=== PATIENT | male | born 1975 | race African-American/Black ===

== ENCOUNTER 2024-07-30 17:56 | Emergency (ER) | payer OTHER, SELFPAY ==
--- NOTE | ~2024-07-30 | XR_ITS ---
EXAMINATION: XR chest 2V Exam Date/Time: 07/30/2024 18:32 PIPE FITTER SOFT COPPER HISTORY: cough, URI Comparison: None. RESULT: Lines, tubes, and devices: None. Lungs and pleura: Clear. Cardiomediastinal silhouette: Unremarkable. Other: No acute osseous or upper abdominal finding. IMPRESSION: No acute cardiopulmonary process. Reviewed, dictated and finalized at location K. FITTER SOFT COPPER
[2024-07-30 17:58] VITALS: BP 137/99; PULSE 109; RESP 20; TEMP 36.6; O2SAT 99
--- OUTSIDE RECORDS SUMMARY | 2024-07-30 18:25 | XMS_ITS | Clinical Summary ---
[facility] Organization [facility] Address [address] [place] [address] Care Team Providers Care Regional Account Manager Name Role Phone Pcp, Not In System Primary Care Provider Unavail able Allergies No known active allergies Medications permethrin (ELIMITE) 5 % cream Apply to affected area once 60 g 0 7 Active predniSONE (DELTASONE) 10 mg tablet 40mg x3days, 30mg x3days, 20mg x3days, 10mg x3days, 5mg x3 days. 32 tablet 0 7 Active Additional Information Patient not taking.Reported on 05/07/2024 methylPREDNISol one (MEDROL, BETH,) 4 mg tablet follow package directions 21 tablet 3 Active Additional Information Patient not taking.Reported on 05/07/2024 amLODIPine (NORVASC) 10 mg tablet Take 1 tablet (10 mg total) by mouth in the morning. 30 tablet 3 Active albuterol (PROVENTIL HFA;VENTOLIN HFA) 90 mcg/actuation inhalerIndicati ons:Acute bronchitis, unspecified organism Inhale 2 puffs every 4 (four) hours as needed for wheezing. 18 g 3 Active white petrolatum (AQUAPHOR) 41 % ointment Apply 1 Application topically as needed (for rash/dry skin). 50 g 5 Active amLODIPine (NORVASC) 5 mg tablet Take 1 tablet (5 mg total) by mouth in the morning. 30 tablet 1 5 Active amLODIPine (NORVASC) 10 mg tablet Take 1 tablet (10 mg total) by mouth in the morning for 60 days. 60 tablet 4 07/06/19 25 Encounters Date Type Department Care Team Description 06/23/2024 11:43 AM EST - 06/23/2024 12:45 PM EST [facility] [address] [place] [address] [place] [address] Larry Grewal MD Rash (Primary Dx); Hypertension, unspecified type Discharge Disposition: Home 06/23/2024 Travel 05/07/2024 10:43 AM EST - 05/07/2024 11:36 AM EST [facility] [address] [place] [address] [place] [address] Medication refill (Primary Dx) Discharge Disposition: Home 05/07/2024 Travel from Last 3 Months Social History Tobacco Use Types Packs/Day Years Used Date Smoking Tobacco: Never Alcohol Use Standard Drinks/Week Comments No 0 (1 standard drink = 0.6 oz pur e alcohol) Childcare Answer Date Recorded Childcare Unknown 11/30/2018 Employment Answer Date Recorded Employment Unknown 11/30/2018 Hunger Screening Answer Date Recorded Within the past 12 months we worried whether our food would run out before we got money to buy more. Never True 06/23/2024 Within the past 12 months th e food we bought just didn't last and we didn't have money to get more. Never True 06/23/2024 Purpose - Life Answer Date Recorded Purpose and direction in life Unknown Sex and Gender Information Value Date Recorded Sex Assigned at Not on file Legal Sex Male 8:11 PM EDT Gender Identity Not on file Sexual Orientation Not on file Last Filed Vital Signs Vital Sign Reading Time Taken Comments Blood Pressure 167/120 06/23/2024 12:30 PM EST Pulse 102 06/23/2024 12:30 PM EST Temperature 37.3 C (99.1 F) 06/23/2024 11:48 AM EST Respiratory Rate 16 06/23/2024 12:30 PM EST Oxygen Saturation 95% 06/23/2024 12:45 PM EST Inhaled Oxygen Concentration - - Weight 124.7 kg (275 lb) 06/23/2024 11:48 AM EST Height 172.7 cm (5' 8 ) 06/23/2024 11:48 AM EST Body Mass Index 41.81 06/23/2024 11:48 AM EST Plan of Treatment Not on file Medical Devices Not on file Insurance [employer] Care Teams Regional Account Manager Relationship Specialty Start Date End Date Pcp, [place] [address] PCP - General Family Medicine 09/14/16
--- OUTSIDE RECORDS SUMMARY | 2024-07-30 18:25 | XMS_ITS | Referral Summary ---
Author Organization [facility] Address [address] [place] [address] Care Team Providers Care Bologna Maker Name Role Phone Pcp, Not In System Primary Care Provider Unavail able Encounters Date Type Department Care Team Description 06/23/2024 Travel 06/23/2024 11:43 AM EST - 06/23/2024 12:45 PM EST Emergency [facility] -Emergency Department [address] [place] [address] [place] [phone] Larry Grewal MD Rash (Primary Dx); Hypertension, unspecified type Discharge Disposition: Home 05/07/2024 Travel 05/07/2024 10:43 AM EST - 05/07/2024 11:36 AM EST Emergency [facility] -Emergency Department [address] [place] [address] [place] [phone] Medication refill (Primary Dx) Discharge Disposition: Home from Last 3 Months Allergies No known active allergies Medications permethrin [...] 60 days. 60 tablet 4 07/06/19 25 Social History Tobacco Use Types Packs/Day Years [...] [employer] Care Teams Bologna Maker Relationship Specialty Start Date End Date Pcp, [place] [address] PCP - General Family Medicine 09/14/16
--- OUTSIDE RECORDS SUMMARY | 2024-07-30 18:25 | XMS_ITS | Data Portability ---
Author Organization [place] [facility] Address [address] [place] [address] Assessment Encounter Date Assessment Date Assessment LastModified by Organization Details LastModified Time 08/07/2023 08/07/2023 F/U with your PCP Go to the ED if chest pain, sob, stroke like symptoms, swelling in legs, or any other emergent conerns arise. [email or web address] Not available 08/07/2023 09:29:03 Plan of Treatment Reminders Order Date Submit Date Provider Last Modified By Organization Details Last Modified Time Details Appointments None recorded. Lab None recorded. Referral None recorded. Procedures None recorded. Surgeries None recorded. Imaging None recorded. Medication Orders amlodipine 10 mg tablet 2023 024 [id number], [address], [place], [address], 09:27:51 Patient TargetsNo targets recorded. Patient Instructions Encounter Date Encounter Id Patient Instructions Last Modified By Organization Details Last Modified Time 08/07/2023 [id number] high blood pressure: care instructions [email or web address] Not available 08/07/2023 09:28:27 Reason for Referral None Reported. Medical Equipment None Reported. Allergies No known drug allergies Medications Name Sig Start Date Stop Date Status Note LastModified by Organization Details LastModified Time amlodipine 10 mg tablet TAKE 1 TABLET BY MOUTH EVERY DAY active Not Available Not Available No t Available methylpredni solone 4 mg tablets in a dose pack TAKE 1 ROW OF TABLETS BY MOUTH EACH DAY INSTRUCTED ON THE PACKAGE active Not Available Not Available No t Available amoxicillin 875 mg-potassium clavulanate 125 mg tablet TAKE 1 TABLET BY MOUTH EVERY 12 HOURS FOR 7 DAYS active Not Available Not Available N ot Available Vitals Date Recorded Body height Body mass index (BMI) Body weight Heart rate Oxygen saturation Oxygen saturation in Arterial blood by Pulse oximetry Body temperature Systolic blood pressure Diastolic blood pressure Provider Name and Address Organization Details Last Updated DateTime 4 170.18 cm 48.7 kg/m2 669191. 95 g 95 /min 97 % 97 % 97.2 [degF] 173 mm[Hg] 99 mm[Hg] Ana Elaine [facility] 09:06:23 Social History None recorded. Functional Status None recorded. Mental Status None recorded. Family History Nothing Reported. Medical History Condition Response Coronary Artery Disease N Gout N Hyperthyroidism N Hypothyroidism N Depression N COPD N Anxiety Disorder N Arthritis N Cancer N Stroke N Cellulitis N High Cholesterol N Fibromyalgia N Abscess N Kidney Disease N Diabetes N Urinary Tract Infection N Diverticulitis N Asthma N Reflux/GERD N Heart Disease N Pulmonary Embolism N Hypertension N Osteoporosis N Past Encounters Encounter ID Performer Location Encounter Start Date Encounter Closed Date Diagnosis/Indication Diagnosis SNOMED-CT Code Diagnosis ICD10 Code Diagnosis Note [id number] BELA JIMENEZ [address] [place] [address] 08/07/2023 08:53:15 08/10/2023 06:57:36 Renewal of prescription [id number] Z76.0 Increased blood pressure 69259375 R03.0 Health Concerns Section Related Observation LastModified by Organization Detai ls LastModified Time None Recorded Concern Status LastModified by Organization Details LastModified Time None Recorded Advance Directives Directive None Recorded Payers Encounter Date Sequence Insurance Name Policy Number Policy Woodward Covered Member ID Woodward Member ID Guarantor Name 08/07/2023 1 [employer] [facility] [id number] Tomas Gamez [id number] Tomas Gamez Notes Date Note Type Note Provider Name and Address Organization Details Recorded Time 08/07/2023 text/html States he ran ou t of his BP medications and has an appointment with his PCP on August 23. He denies any chest pain, shortness of breath, headaches. Currently asymtomatic. NOVA MILAN NP [address] [place], [address], [facility] 08/07/2023 09:29:20
[2024-07-30 18:57] LABS: Influenza A QL RT-PCR Negative (Negative); Influenza B QL RT-PCR Negative (Negative); RSV RNA, RT-PCR Negative (Negative); SARS-CoV-2 RNA PCR Negative (Negative)
--- NOTE | 2024-07-30 19:21 | ED_ITS ---
HPI - URI/Sore Throat General Chief Complaint: Upper Respiratory Infection Stated Complaint: sinus infection Time Seen by Provider: 07/30/24 18:08 Source: patient Mode of arrival: ambulatory Limitations: no limitations History of Present Illness HPI Narrative: Patient is a 49-year-old male who presents to the ED with report of cough. Patient reports he has had an intermittent cough for the last 2.5 weeks. States it has been occasionally productive of green-yellow sputum. Reports rhinorrhea, sinus pressure/congestion. States he recently went to another ER in [place], but was not prescribed antibiotics and was told he needed amoxicillin by his family member who is a nurse. Has been using fjjs-[id number]-drnweti medications with minimal improvement. Patient denies fevers, shortness of breath. Related Data Allergies Allergy/AdvReac Type Severity Reaction Status Date / Time No Known Allergies Allergy Verified 07/30/24 18:01 Review of Systems Review of Systems: All systems reviewed & are unremarkable except as noted in HPI. All systems reviewed & are unremarkable except as noted in HPI and below Exam Narrative: GENERAL: Well appearing, morbidly obese with BMI of 46.5, non-toxic, in no acute distress. HEAD: Normocephalic, atraumatic. RESPIRATORY: Airway patent, respirations nonlabored. Clear to auscultation bilaterally, no rales, rhonchi, wheezing. No focal lung sounds. CARDIOVASCULAR: Regular rate and rhythm without murmurs, rubs, or gallops. MUSCULOSKELETAL: Moves all extremities. No gross deformities. SKIN: Warm, dry, normal color. NEURO: A&O X3. Speech clear. PSYCHIATRIC: Appropriate mood and affect. Normal interaction. Course Vital Signs Vital signs: Vital Signs Temperature 97.8 F 07/30/24 17:58 Pulse Rate 109 H 07/30/24 17:58 Respiratory Rate 07/30/24 17:58 Blood Pressure 137/99 H 07/30/24 17:58 Pulse Oximetry 99 07/30/24 17:58 Oxygen Delivery Room Air 07/30/24 17:58 Temperature 97.8 F 07/30/24 17:58 Pulse Rate 109 H 07/30/24 17:58 Respiratory Rate 07/30/24 17:58 Blood Pressure 137/99 H 07/30/24 17:58 Pulse Oximetry 99 07/30/24 17:58 Oxygen Delivery Room Air 07/30/24 18:11 MDM - URI/Sore Throat MDM Narrative Medical decision making narrative: Patient presented to ED with 2.5 week history of upper respiratory symptoms, cough. Vital signs are stable upon arrival. Patient is afebrile here. In no acute distress. Lungs sound clear on auscultation. Patient requesting antibiotics. Viral swabs are negative. Chest x-ray here is clear. No evidence of pneumonia or other focal consolidation. Discussed lab and imaging findings with patient, likelihood of viral URI. Discussed further management of upper respiratory infection/ Ddqs-ehi-trwujkb cough and cold medicines to utilize. Will prescribe Tessalon Perles. Discussed at length why antibiotics are not indicated or required. Patient voiced understanding. Will be discharged. Given strict return precautions. He agrees with plan. Discharged in stable condition. Per ED nurse, patient was frustrated at time of d/c about not receiving antibiotics and threw away discharge paperwork in the ED room. Medical Records Attestation: I reviewed the patient's medical records. Lab Data Attestation: I reviewed the patient's lab results. Labs: Lab Results 07/30/24 Range/Units 18:15 Influenza A (RT-PCR) Negative (Negative) Influenza B (RT-PCR) Negative (Negative) RSV (RT-PCR) Negative (Negative) SARS-CoV-2 RNA (RT-PCR) Negative (Negative) Imaging Data Attestation: I personally reviewed and interpreted this imaging study as follows: Radiologist's impression: ITS Impressions Chest X-Ray 07/30/24 18:53 IMPRESSION: No acute cardiopulmonary process. Discharge Plan Discharge Clinical Impression: Upper respiratory infection Qualifiers: URI type: unspecified URI Qualified Code(s): J06.9 - Acute upper respiratory infection, unspecified Patient Disposition: Home, Self-Care Condition: Stable Instructions: Antibiotic Form, Upper Respiratory Infection (ED), Viral Syndrome (ED), Cold Symptoms (ED) Additional Instructions: Your testing for COVID, RSV, influenza was negative. Your chest x-ray here was clear. You likely have a viral upper respiratory infection that will take some time to resolve. Utilize Tessalon Perles as needed for cough. Recommend Tylenol and Ibuprofen for discomfort and/or fevers. Recommend vahn-xep-qaounaw cough and cold medicines for symptom relief, Delsym, Mucinex, DayQuil, Sudafed, Robitussin, TheraFlu. Follow up with your primary care doctor for further evaluation. Return to the ED if you experience chest pain, difficulty breathing, unable to keep down food or drink, severe pain, persistent fevers, or any other symptoms of concern. Patient Language: Turkish Prescriptions: New benzonatate 200 mg capsule 200 mg PO TID PRN (Reason: cough) Qty: 15 0RF Follow-up/Referrals: PHYSICIAN,FOOD SERVICE ORDER CLERK [Primary Care Provider] - Time of Disposition: 19:59
== END 2024-07-30 20:08 | disposition home or self-care (01) ==
PROVIDERS: Emergency Provider Physician Assistant
DX: J06.9 Acute upper respiratory infection, unspecified (principal); Z20.822 Contact with and (suspected) exposure to COVID-19
CPT/HCPCS: 71046; 87637; 99283